=== PATIENT | male | born 1955 | race Caucasian/White ===

== ENCOUNTER 2016-04-07 08:47 | Day surgery (SDC) | payer OTHER ==
[~2016-04-07 08:47] MED LIST: FENTANYL 250 MCG/5 ML AMP IV PRN; FENTANYL 5 ML ONE; LACTATED RINGERS 1,000 ML IV SCH; MIDAZOLAM HCL 5 MG/5 ML VIAL IV PRN; MIDAZOLAM HCL 5 MG/5 ML VIAL ONE
[2016-04-07] MEDS ORDERED: IV START KIT ONE (08:52)
[2016-04-07] MEDS ORDERED: LACTATED RINGERS 1,000 ML ONE (08:52)
[2016-04-07] MEDS ORDERED: MIDAZOLAM HCL 5 MG/5 ML VIAL ONE (09:55)
[2016-04-07] MEDS ORDERED: FENTANYL 5 ML ONE (09:55)
--- NOTE | 2016-04-09 09:30 | SURGPATH ---
[facility] [address] [place] [id number] Patient Name: CANDICE MEREDITH MR#: [id number] : 1955 Gender: M Specimen #: [id number] Collected: 04/07/2016 Received: 04/08/2016 Reported: 04/09/2016 Submitting Phys: MIN PORTILLO Copy To Phys: [facility] Clinical History / Pre-Operative Diagnosis: Bloody diarrhea with LLQ pain; abnormal CAT scan; history of polyps; rule out colitis Specimen Source / Surgical Procedure Performed: #1-cecal biopsy; #2-sigmoid biopsy at 30 cm; #3-sigmoid polyp at 15 cm x2 (only one retrieved) Interpretation: 1. CECUM, BIOPSY: - COLONIC MUCOSA SHOWING NO DIAGNOSTIC ABNORMALITIES. - NO EVIDENCE OF SIGNIFICANT INFLAMMATION OR MALIGNANCY. 2. COLON, SIGMOID 30 CM, BIOPSY: - COLONIC MUCOSA SHOWING NO DIAGNOSTIC ABNORMALITIES. - NO EVIDENCE OF SIGNIFICANT INFLAMMATION OR MALIGNANCY. 3. COLON, 15 CM, BIOPSY: - TUBULAR ADENOMA. - NO EVIDENCE OF MALIGNANCY. Electronically Signed Out Gurmeet Lam M.D., Ph.D. Gross Description: #1 The specimen is received in a formalin filled container labeled with the patient's name and "cecal biopsy". A single georges biopsy is 0.5 cm. Totally embedded in cassette #1. #2 The specimen is received in a formalin filled container labeled with the patient's name and "sigmoid biopsy at 30 cm". Two carrasco-georges biopsies are 0.2 and 0.4 cm. Totally embedded in cassette #2. #3 The specimen is received in a formalin filled container labeled with the patient's name and "colon polyp at 15 cm". A polypoid georges biopsy is 0.3 cm. Totally embedded in cassette #3. Violet Aguilar. Microscopic Description: 1. Examination of multiple levels from the cecum biopsy shows two fragments of histologically unremarkable colonic mucosa. The architecture is intact without evidence of distortion. There is no evidence of significant inflammation or malignancy. 2. Examination of multiple levels from the sigmoid colon biopsy at 30 cm shows two fragments of histologically unremarkable colonic mucosa. The architecture is intact without evidence of distortion. There is no evidence of significant inflammation or malignancy. 3. Examination of multiple levels from the colon biopsy at 15 cm shows a single fragment of colonic mucosa with adenomatous changes within glands and tubules. There is no evidence of malignancy. 1: 63464 2: 00287 3: 13506 D12.7
== END 2016-04-07 11:32 | disposition home or self-care (01) ==
LOC: SDC 08:47
PROVIDERS: ATTEND Internal Medicine Gastroenterology
PROC: 0DBH8ZX Excision of Cecum, Via Natural or Artificial Opening Endoscopic, Diagnostic (ICD-10-PCS; principal; 2016-04-07)
PROC: 0DBN8ZX Excision of Sigmoid Colon, Via Natural or Artificial Opening Endoscopic, Diagnostic (ICD-10-PCS; 2016-04-07)
PROC: 0DBN8ZX Excision of Sigmoid Colon, Via Natural or Artificial Opening Endoscopic, Diagnostic (ICD-10-PCS; 2016-04-07)
DX: K57.30 Diverticulosis of large intestine without perforation or abscess without bleeding (principal); D12.5 Benign neoplasm of sigmoid colon; Z86.010 Personal history of colon polyps; E78.5 Hyperlipidemia, unspecified; I10 Essential (primary) hypertension; M79.1 Myalgia; Z88.8 Allergy status to other drugs, medicaments and biological substances; Z79.82 Long term (current) use of aspirin
CPT/HCPCS: 45385; 45380; J3010 ×2; J2250 ×2; J7120